=== PATIENT | male | born 1945 | race Caucasian/White ===

== ENCOUNTER → 2024-03-18 08:03 | Outpatient (REF) | payer MEDICARE, OTHER, SELFPAY ==
[2024-03-18 09:13] LABS: % Basophils 1.1 % (0-2); % Eosinophils 3.4 % (0-6); % Immature Granulocytes 0.4 % (0-0.5); % Lymphocytes 19.4 % (20.5-51.1); % Monocytes 10.4 % (1.7-9.3); % Neutrophils 65.3 % (42.2-75.2); Absolute Basophils 0.1 10^3/uL (0-0.2); Absolute Eosinophils 0.2 10^3/uL (0-0.7); Absolute Monocytes 0.6 10^3/uL (0.1-0.6); Absolute Neutrophils 3.5 10^3/uL (1.4-6.5); Hematocrit 42.4 % (39.0-52.0); Mean Corpuscular Hgb 29.5 pg (27.0-31.0); Mean Corpuscular Volume 89.5 fL (80.0-94.0); Mean Platelet Volume 9.6 fL (7.4-10.4); Nucleated Red Blood Cells % 0 % (-); Platelet Count 166 10^3/uL (130-400); Red Blood Cell Count 4.74 10^6/uL (4.70-6.10); Red Cell Dist. Width 13.2 % (11.5-14.5); White Blood Cell Count 5.3 10^3/uL (4.8-10.8)
[2024-03-18 09:19] LABS: ALT (SGPT) 23 U/L (0-50); AST (SGOT) 32 U/L (17-59); Alkaline Phosphatase 81 U/L (38-126); Blood Urea Nitrogen 32 mg/dl (9-20); Calcium 9.2 mg/dl (8.4-10.2); Carbon Dioxide 26 mmol/L (22-30); Chloride 106 mmol/L (98-107); Glucose 89 mg/dl (70-99); HDL Cholesterol 71 mg/dl; LDL Cholesterol, Calculated 129 mg/dl; Potassium 4.4 mmol/L (3.5-5.1); Sodium 137 mmol/L (135-145); Total Bilirubin 0.6 mg/dl (0.2-1.3); Total Cholesterol 220 mg/dl (50-199); Total Protein 6.5 g/dl (6.3-8.2); Triglyceride 103 mg/dl (10-149); Very Low Density Lipoprotein 20 mg/dl (0-30); eGFR 51.77
[2024-03-18 14:52] LABS: PSA, Total - Diagnostic 0.11 ng/ml (0.0-4.0); TSH Reflex To Free T4 0.79 uIU/ml (0.47-4.68)
== END ==
LOC: REG 08:03
PROVIDERS: ATTENDING PHYSICIAN Internal Medicine Cardiovascular Disease; FAMILY PHYSICIAN Family Medicine; REFERRING PHYSICIAN Specialist
DX: I34.0 Nonrheumatic mitral (valve) insufficiency (principal); I10 Essential (primary) hypertension; E78.5 Hyperlipidemia, unspecified; D50.9 Iron deficiency anemia, unspecified; I36.1 Nonrheumatic tricuspid (valve) insufficiency; C61 Malignant neoplasm of prostate
CPT/HCPCS: 36415; 80053; 80061; 84153; 84443; 85025

== ENCOUNTER → 2024-07-22 07:26 | Outpatient (REF) | payer MEDICARE, OTHER, SELFPAY ==
[2024-07-22 08:18] LABS: % Basophils 0.9 % (0-2); % Eosinophils 1.8 % (0-6); % Immature Granulocytes 0.4 % (0-0.5); % Lymphocytes 16.7 % (20.5-51.1); % Monocytes 10.3 % (1.7-9.3); % Neutrophils 69.9 % (42.2-75.2); Absolute Basophils 0.1 10^3/uL (0-0.2); Absolute Eosinophils 0.1 10^3/uL (0-0.7); Absolute Lymphocytes 0.9 10^3/uL (1.2-3.4); Absolute Monocytes 0.6 10^3/uL (0.1-0.6); Absolute Neutrophils 3.9 10^3/uL (1.4-6.5); Hematocrit 43.2 % (39.0-52.0); Hemoglobin 14.5 g/dL (13.0-18.0); Mean Corp Hgb Conc. 33.6 g/dL (33.0-37.0); Mean Corpuscular Hgb 30.2 pg (27.0-31.0); Mean Platelet Volume 9.6 fL (7.4-10.4); Nucleated Red Blood Cells % 0 % (-); Platelet Count 163 10^3/uL (130-400); Red Cell Dist. Width 13.3 % (11.5-14.5); White Blood Cell Count 5.6 10^3/uL (4.8-10.8)
[2024-07-22 08:50] LABS: ALT (SGPT) 18 U/L (0-50); AST (SGOT) 26 U/L (17-59); Albumin 4.2 g/dl (3.5-5.0); Alkaline Phosphatase 73 U/L (38-126); Blood Urea Nitrogen 32 mg/dl (9-20); Calcium 9.9 mg/dl (8.4-10.2); Carbon Dioxide 27 mmol/L (22-30); Chloride 103 mmol/L (98-107); Glucose 90 mg/dl (70-99); HDL Cholesterol 67 mg/dl; LDL Cholesterol, Calculated 158 mg/dl; Potassium 4.4 mmol/L (3.5-5.1); Sodium 143 mmol/L (135-145); Total Bilirubin 0.6 mg/dl (0.2-1.3); Total Cholesterol 253 mg/dl (50-199); Total Protein 6.6 g/dl (6.3-8.2); Triglyceride 141 mg/dl (10-149); Very Low Density Lipoprotein 28 mg/dl (0-30); eGFR 51.77
[2024-07-22 09:12] LABS: TSH Reflex To Free T4 0.78 uIU/ml (0.47-4.68)
== END ==
LOC: REG 07:26
PROVIDERS: ATTENDING PHYSICIAN Internal Medicine Cardiovascular Disease; FAMILY PHYSICIAN Family Medicine
DX: I34.0 Nonrheumatic mitral (valve) insufficiency (principal); I10 Essential (primary) hypertension; E78.5 Hyperlipidemia, unspecified; D50.9 Iron deficiency anemia, unspecified; I36.1 Nonrheumatic tricuspid (valve) insufficiency; C61 Malignant neoplasm of prostate
CPT/HCPCS: 36415; 80053; 80061; 84153; 84443; 85025

== ENCOUNTER → 2024-08-27 09:55 | Outpatient (REF) | payer MEDICARE, OTHER, SELFPAY | LOC: RCS 09:55 | PROVIDERS: ATTENDING PHYSICIAN Internal Medicine Cardiovascular Disease; FAMILY PHYSICIAN Family Medicine | DX: I10 Essential (primary) hypertension (principal); I34.1 Nonrheumatic mitral (valve) prolapse | CPT/HCPCS: 93306 ==

== ENCOUNTER → 2024-09-23 07:32 | Outpatient (REF) | payer MEDICARE, OTHER, SELFPAY ==
[2024-09-23 08:15] LABS: % Basophils 0.8 % (0-2); % Eosinophils 1.6 % (0-6); % Immature Granulocytes 0.4 % (0-0.5); % Lymphocytes 20.1 % (20.5-51.1); % Monocytes 10.7 % (1.7-9.3); % Neutrophils 66.4 % (42.2-75.2); Absolute Eosinophils 0.1 10^3/uL (0-0.7); Absolute Monocytes 0.5 10^3/uL (0.1-0.6); Absolute Neutrophils 3.4 10^3/uL (1.4-6.5); Hemoglobin 14.3 g/dL (13.0-18.0); Mean Corpuscular Hgb 30.3 pg (27.0-31.0); Mean Platelet Volume 9.7 fL (7.4-10.4); Nucleated Red Blood Cells % 0 % (-); Platelet Count 168 10^3/uL (130-400); Red Blood Cell Count 4.72 10^6/uL (4.70-6.10); Red Cell Dist. Width 13.3 % (11.5-14.5); White Blood Cell Count 5.1 10^3/uL (4.8-10.8)
[2024-09-23 08:55] LABS: ALT (SGPT) 19 U/L (0-50); AST (SGOT) 25 U/L (17-59); Alkaline Phosphatase 64 U/L (38-126); Blood Urea Nitrogen 29 mg/dl (9-20); Calcium 9.3 mg/dl (8.4-10.2); Carbon Dioxide 25 mmol/L (22-30); Chloride 105 mmol/L (98-107); Glucose 91 mg/dl (70-99); HDL Cholesterol 68 mg/dl; LDL Cholesterol, Calculated 139 mg/dl; Potassium 4.4 mmol/L (3.5-5.1); Sodium 142 mmol/L (135-145); Total Bilirubin 0.6 mg/dl (0.2-1.3); Total Cholesterol 232 mg/dl (50-199); Total Protein 6.4 g/dl (6.3-8.2); Triglyceride 127 mg/dl (10-149); Very Low Density Lipoprotein 25 mg/dl (0-30); eGFR 56.23
[2024-09-23 09:14] LABS: PSA, Total - Screen 0.11 ng/ml (0.0-4.0)
== END ==
LOC: REG 07:32
PROVIDERS: ATTENDING PHYSICIAN Family Medicine
DX: I10 Essential (primary) hypertension (principal); I34.1 Nonrheumatic mitral (valve) prolapse; E78.5 Hyperlipidemia, unspecified; D50.9 Iron deficiency anemia, unspecified; C61 Malignant neoplasm of prostate; N18.31 Chronic kidney disease, stage 3a; Z12.5 Encounter for screening for malignant neoplasm of prostate
CPT/HCPCS: 36415; 80053; 80061; 85025; G0103

== ENCOUNTER → 2024-11-01 14:06 | Outpatient (REF) | payer MEDICARE, OTHER, SELFPAY | LOC: RAD 14:06 | PROVIDERS: ATTENDING PHYSICIAN Physician Assistant | DX: H93.A3 Pulsatile tinnitus, bilateral (principal); I34.0 Nonrheumatic mitral (valve) insufficiency | CPT/HCPCS: 93880 ==

== ENCOUNTER → 2024-11-30 08:10 | Outpatient (REF) | payer MEDICARE, OTHER, SELFPAY | LOC: MRI 3T 08:10 | PROVIDERS: ATTENDING PHYSICIAN Physician Assistant; FAMILY PHYSICIAN Family Medicine | DX: H93.A3 Pulsatile tinnitus, bilateral (principal) | CPT/HCPCS: 70553; A9575 ==

== ENCOUNTER 2025-01-01 11:55 | Emergency (ER) | payer MEDICARE, OTHER, SELFPAY ==
[2025-01-01 12:03] VITALS: BP 152/87
--- NOTE | 2025-01-01 13:18 | ED.GENMED ---
History of Present Illness
General
Chief Complaint: Abdominal Symptoms
Time Seen by Provider: 01/01/25 13:07
History of Present Illness
History of Present Illness:
79-year-old male presents the emergency department for evaluation after a choking event. This is apparently the third such a choking event in the past 2 years. Daughter performed the Heimlich maneuver. He had mild coughing after the event but has
had none since. He denies any chest pain or dyspnea at this time
Past History
Past History
ED Past Medical History: HTN and Other (Hyperlipidemia)
ED Past Surgical History: Other (Noncontributory)
Social History
Tobacco: Non-smoker
Alcohol: Occasional
Drug: None
Personal:
Living: with family
Review of Systems
Review of Systems
Allergies reviewed?: Yes
All Other Systems: ROS reviewed and negative except as documented in HPI and ROS
Phy Exam
Physical Exam
Physical Exam:
GEN: Well appearing, NAD, WDWN
HEENT: Oral mucosa moist, no scleral icterus
Cardiac: Regular rate
Lung: No respiratory distress, no tachypnea, lungs clear to auscultation bilaterally
MSK: No gross deformity or injuries
Skin: Good color, no pallor or jaundice, no rashes
Neuro: AO x3, moves all extremities freely
Psych: Calm, cooperative
Course
Vital Signs
Initial and Last Documented VS:
Initial Vital Signs
Temp Pulse Resp BP Pulse Ox
98.1 F 64 16 152/87 100
01/01/25 12:03 01/01/25 12:03 01/01/25 12:01/01/25 12:03 01/01/25 12:03
Last Documented Vital Signs
Temp Pulse Resp BP Pulse Ox
98.1 F 64 16 152/87 100
01/01/25 12:03 01/01/25 12:03 01/01/25 12:03 01/01/25 12:03 01/01/25 12:03
MDM/Problems Addressed
MDM/Problems Addressed:
Lungs clear at this time, no evidence of coughing to suggest ongoing aspiration event. No indication for treatment of aspiration pneumonia, however I did provide the patient with antibiotics and advised he and his family to begin these if you
develop fever or coughing in the next 48 hours. No indication for chest x-ray from my standpoint. Outpatient orders written for speech therapy evaluation
*Critical Care Note
Total Time (30-74mins, 75-104mins- exclusive of procedures): Not Applicable
ED Attending Note
-
Portions of this chart may have been created with voice recognition software.� Occasional wrong word or��sound alike� substitutions may have occurred due to the inherent limitations of voice recognition software.
Discharge Plan
Departure
Patient Disposition: Home (Routine Discharge)
Date of Disposition: 01/01/25
Time of Disposition: 13:18
Patient with high blood pressure during this ER visit?: No
Discharge Problem:
Choking
Instructions: Choking
Prescriptions:
New
amoxicillin-pot clavulanate 875-125 mg tablet
1 tab PO BID Qty: 10 0RF
No Action
simvastatin 20 MG tablet
20 mg PO HS
dimethicone [Cerave Baby Moisturizing] 237 ML lotion
1 applic topical DAILYPRN PRN (Reason: eczema)
triamcinolone acetonide 1 APPLIC ointment
15 gm TP DAILYPRN PRN (Reason: eczema)
acetaminophen [Tylenol Extra Strength] 500 MG tablet
500 mg PO PRN PRN (Reason: mild pain)
calcium carbonate [Antacid (calcium carbonate)] 1 TABLET tablet,chewable
1,000 mg PO DAILYPRN PRN (Reason: indigestion)
melatonin 5 MG tablet
5 - 10 mg PO PRN PRN (Reason: sleep)
aspirin 81 MG tablet,delayed release (DR/EC)
81 mg PO DAILY
ibuprofen 200 MG capsule
200 mg PO PRN PRN (Reason: Daily)
valacyclovir 500 MG tablet
500 mg PO PRN PRN (Reason: As Needed)
tamsulosin 0.4 MG capsule
0.4 mg PO QPM
electrolytes-dextrose [Hydralyte] 1,000 ML solution
1,000 ml PO PRN PRN (Reason: As Needed)
naproxen sodium 220 MG capsule
220 mg PO PRN PRN (Reason: Pain)
ferrous gluconate 236 MG tablet
236 mg PO DAILY
Ca [id number]-[id number]-Mkaf-gozqh-lim bor [Prosteon] 1 EACH tablet
1 ea PO BID
Interventions
Interventions:
*Risk Screen - Suicide Last Done: 01/01/25 12:03
*General Assessment Last Done: 01/01/25 13:39
*Neglect/Abuse Screening Last Done: 01/01/25 12:03
ED- Fall Risk Assessment Last Done: 01/01/25 13:41
*ED COVID-19 Vaccine History Last Done: 01/01/25 13:39
*Nursing Disposition Last Done: 01/01/25 14:14
DT-Boyjzd-Cwsxtwgvvx Assessment Last Done: 01/01/25 13:43
Discharge Date and Time
Discharge Date/Time: 01/01/25 14:14
Print Language: ERITREAN
[2025-01-01 13:40] VITALS: BMI 20.5
== END 2025-01-01 14:14 | disposition home or self-care (01) ==
LOC: EMR 11:55
PROVIDERS: EMERGENCY PHYSICIAN Student in an Organized Health Care Education/Training Program; FAMILY PHYSICIAN Family Medicine
DX: T17.920A Food in respiratory tract, part unspecified causing asphyxiation, initial encounter (principal); W44.F3XA Food entering into or through a natural orifice, initial encounter
CPT/HCPCS: 99283

== ENCOUNTER → 2025-03-24 15:52 | Outpatient (REF) | payer MEDICARE, OTHER, SELFPAY | LOC: RAD 15:52 | PROVIDERS: ATTENDING PHYSICIAN Family Medicine | DX: M54.50 Low back pain, unspecified (principal) | CPT/HCPCS: 72110 ==

== ENCOUNTER 2025-04-03 22:08 | Emergency (ER) | payer MEDICARE, OTHER, SELFPAY ==
[2025-04-03 22:31] VITALS: BP 158/97
--- NOTE | 2025-04-04 01:40 | EDRN ---
increased. Pt states that he was on a dose pack and it did nothing for him. Pt states that when was bending to get into bed the pain flew into his mid back and it was excruciating.
[2025-04-04 03:00] VITALS: BP 147/80
--- NOTE | 2025-04-04 03:22 | ED.GENMED ---
History of Present Illness
General
Chief Complaint: Back Pain
Source: patient
Exam Limitations: none
Time Seen by Provider: 04/04/25 03:20
History of Present Illness
History of Present Illness:
79-year-old male with a past medical history of hypertension, hyperlipidemia, chronic renal disease, he presents to emergency apartment with concerns of low back pain. Patient reports that he�s had this ongoing for the past month. Patient reports
that he had x-rays of this a week ago, which did not show anything acute. He was started on steroids with minimal improvement of his symptoms. Patient reports that when he was going to sleep this evening, the pain was keeping him up. He denies
urinary or fecal incontinence, he needs any general paresthesias. He needs any fevers or chills. He denies any abdominal pain. He states that the pain is worse with movement or twisting or bending. Patient reports that the pain is lowest when he is
remaining still. patient has a follow up with his primary care provider for the symptoms in a few days. Patient also states that he had intermittent chest discomfort with this with certain movements that has been going on and off for the past few
weeks. He reports that he feels pain around his ribs and feels like the back pain will radiate to the front. He and I shortness of breath. Aside from the steroids, he�s not taking anything else for symptoms. He has pain lower extremities. He has
difficulty ambulating.
Past History
Past History
ED Past Medical History: HTN and Other (Hyperlipidemia)
ED Past Surgical History: Other (Noncontributory)
Social History
Tobacco: Non-smoker
Alcohol: Occasional
Drug: None
Personal:
Living: with family
Review of Systems
Review of Systems
All Other Systems: ROS reviewed and negative except as documented in HPI and ROS
Phy Exam
Physical Exam
Physical Exam:
General: Patient is well appearing and in no acute distress; non-toxic
Skin: Warm and dry, no rashes or lesions
Head: Normocephalic, atraumatic
Eyes: Sclera non-icteric. EOMs intact.
Cardiac: Regular rate and rhythm, no murmurs, no tenderness to palpation in the external chest wall
Peripheral Vascular: No LE swelling or edema
Pulm: Normal respiratory effort, no wheezes, rales, or rhonchi
Abdomen: No abdominal tenderness to palpation
Musculoskeletal: No midline spinal tenderness to palpation. Some paralumbar tenderness to palpation noted.
Neuro: CN II-XII intact, no focal neurologic deficits. Normal gait.
Psychiatric: Appropriate mood and affect.
Course
Orders/Labs/Results
Orders:
Orders
04/04/25 03:42
Lidocaine [Lidocaine 4% Patch] 1 patch TOPICAL DAILY ONE
Apply Lidocaine patch(s) to:: lower lumbar
Vital Signs
Initial and Last Documented VS:
Initial Vital Signs
Temp Pulse Resp BP Pulse Ox
98.0 F 82 16 158/97 96
04/03/25 22:31 04/03/25 22:31 04/03/25 22:31 04/03/25 22:31 04/03/25 22:31
Last Documented Vital Signs
Temp Pulse Resp BP Pulse Ox
97.8 F 77 16 147/80 97
04/04/25 03:00 04/04/25 03:00 04/04/25 03:00 04/04/25 03:00 04/04/25 03:00
MDM/Problems Addressed
Differential Diagnosis Includes:
ddx include lumbar sprain, compression fracture, ACS, costochondritis
MDM/Problems Addressed:
This is a 79-year-old male presents emergency apartment with concerns of back pain. History is above. This has been going on for the past month. He also admits that he�s had intermittent chest discomfort. On physical exam he�s well appearing in no
distress, he is ambulating without difficulty. He has no midline spinal tenderness. He has no neurologic deficits. Initial plan was to obtain blood work including troponin, ecg, and also repeat x-rays. Patient states that �this is not a problem with
the heart� and is refusing ecg and blood work, patient is very frustrated as he has been waiting too long and is requesting to go home. He attempted to elope prior to my evaluation. Patient reports that the chest pain only occurs occasionally with
certain movements and is currently chest pain free. I did explain to patient that in his age and risk, it is important to assess for coronary disease. Patient still requesting to go home as he has to make an urology appointment in a few hours.
Discussed strict returning precautions. Patient states that if it comes back or gets worse he will return. In light of patients back pain, do not suspect neurologic emergency or aortic emergency, suspect lumbar sprain especially considering it�s
chronicity. Did offer various pain management regimens but patient did opt for lidocaine patch. Patient stable for discharge
Chronic conditions affecting care:
hlp, htn
*Pulse Oximetry
Patient hypoxic: no
*Critical Care Note
Total Time (30-74mins, 75-104mins- exclusive of procedures): Not Applicable
Data Reviewed
Review of Other/Old Records Reveals: Records
ED Attending Note
-
Portions of this chart may have been created with voice recognition software.� Occasional wrong word or��sound alike� substitutions may have occurred due to the inherent limitations of voice recognition software.
Discharge Plan
Departure
Patient Disposition: Home (Routine Discharge)
Date of Disposition: 04/04/25
Time of Disposition: 04:03
Patient with high blood pressure during this ER visit?: Yes
Condition: Good
Discharge Problem:
Acute lumbar myofascial strain
Instructions: Low Back Pain (DC), BLOOD PRESSURE
Prescriptions:
New
lidocaine 5 % adhesive patch,medicated
1 patch topical DAILY Qty: 30 0RF
No Action
simvastatin 20 MG tablet
20 mg PO HS
dimethicone [Cerave Baby Moisturizing] 237 ML lotion
1 applic topical DAILYPRN PRN (Reason: eczema)
triamcinolone acetonide 1 APPLIC ointment
15 gm TP DAILYPRN PRN (Reason: eczema)
acetaminophen [Tylenol Extra Strength] 500 MG tablet
500 mg PO PRN PRN (Reason: mild pain)
calcium carbonate [Antacid (calcium carbonate)] 1 TABLET tablet,chewable
1,000 mg PO DAILYPRN PRN (Reason: indigestion)
melatonin 5 MG tablet
5 - 10 mg PO PRN PRN (Reason: sleep)
aspirin 81 MG tablet,delayed release (DR/EC)
81 mg PO DAILY
ibuprofen 200 MG capsule
200 mg PO PRN PRN (Reason: Daily)
valacyclovir 500 MG tablet
500 mg PO PRN PRN (Reason: As Needed)
tamsulosin 0.4 MG capsule
0.4 mg PO QPM
electrolytes-dextrose [Hydralyte] 1,000 ML solution
1,000 ml PO PRN PRN (Reason: As Needed)
naproxen sodium 220 MG capsule
220 mg PO PRN PRN (Reason: Pain)
ferrous gluconate 236 MG tablet
236 mg PO DAILY
Ca Usr-[id number]-Eryh-hhcgf-daj bor [Prosteon] 1 EACH tablet
1 ea PO BID
amoxicillin-pot clavulanate 875-125 mg tablet
1 tab PO BID Qty: 10 0RF
Referrals:
Nancy Mathis MD [Family Provider] -
Activity Restrictions/Additional Instructions:
Please follow-up with your urologist and primary care provider as discussed.
Lidocaine patches have been sent to your pharmacy. You can apply 1 patch once daily to affected area. Please remove after 12 hours.
PLEASE RETURN EMERGENCY DEPARTMENT SHOULD YOU DEVELOP NUMBNESS OR TINGLING IN THE GENITAL REGION, URINARY FECAL INCONTINENCE, URINARY RETENTION, DIFFICULTY AMBULATING, OR BILATERAL LOWER EXTREMITY WEAKNESS. LOSS OF SENSATION LOWER EXTREMITIES.
INABILITY AMBULATE, OR ANY OTHER SIGNS OR SYMPTOMS WORRISOME TO YOU.
Interventions
Interventions:
*Risk Screen - Suicide Last Done: 04/03/25 22:31
*General Assessment Last Done: 04/03/25 22:31
*Neglect/Abuse Screening Last Done: 04/03/25 22:31
*ED- Fall Risk Assessment Last Done: 04/03/25 22:31
*ED COVID-19 Vaccine History Last Done: 04/03/25 22:31
*Nursing Disposition Last Done: 04/04/25 04:00
ED-Musculoskeletal Assessment Last Done: 04/04/25 01:37
Discharge Date and Time
Discharge Date/Time: 04/04/25 04:00
Print Language: ARABIC
[2025-04-04] MEDS: LIDOCAINE 4% PATCH 1 PATCH TOPICAL (04:06)
== END 2025-04-04 04:00 | disposition home or self-care (01) ==
LOC: EMR 22:08
PROVIDERS: EMERGENCY PHYSICIAN Student in an Organized Health Care Education/Training Program; FAMILY PHYSICIAN Family Medicine
DX: S39.012A Strain of muscle, fascia and tendon of lower back, initial encounter (principal); X58.XXXA Exposure to other specified factors, initial encounter; I12.9 Hypertensive chronic kidney disease with stage 1 through stage 4 chronic kidney disease, or unspecified chronic kidney disease; N18.9 Chronic kidney disease, unspecified; E78.49 Other hyperlipidemia
CPT/HCPCS: 99283

== ENCOUNTER → 2025-04-07 15:15 | Outpatient (REF) | payer MEDICARE, OTHER, SELFPAY | LOC: MRI 3T 15:15 | PROVIDERS: ATTENDING PHYSICIAN Family Medicine | DX: M54.50 Low back pain, unspecified (principal); R15.9 Full incontinence of feces | CPT/HCPCS: 72148 ==

== ENCOUNTER → 2025-11-04 10:48 | Outpatient (REF) | payer OTHER, MEDICARE, SELFPAY ==
[2025-11-04 11:18] LABS: Hematocrit 26.4 % (39.0-52.0); Hemoglobin 8.3 g/dL (13.0-18.0); Mean Corp Hgb Conc. 31.4 g/dL (33.0-37.0); Mean Corpuscular Volume 88.9 fL (80.0-94.0); Nucleated Red Blood Cells % 0 % (-); Platelet Count 329 10^3/uL (130-400); Red Cell Dist. Width 13.6 % (11.5-14.5)
[2025-11-04 12:35] LABS: Blood Urea Nitrogen 26 mg/dl (9-20); Calcium 8.5 mg/dl (8.4-10.2); Carbon Dioxide 26 mmol/L (22-30); Chloride 104 mmol/L (98-107); Glucose 83 mg/dl (70-99); Potassium 4.0 mmol/L (3.5-5.1); Sodium 134 mmol/L (135-145); eGFR > 60.00
== END ==
LOC: OLABP 10:48
PROVIDERS: ATTENDING PHYSICIAN Family Medicine
DX: R31.9 Hematuria, unspecified (principal); S31.809D Unspecified open wound of unspecified buttock, subsequent encounter; S22.081D Stable burst fracture of T11-T12 vertebra, subsequent encounter for fracture with routine healing; F03.90 Unspecified dementia, unspecified severity, without behavioral disturbance, psychotic disturbance, mood disturbance, and anxiety; I10 Essential (primary) hypertension; R42 Dizziness and giddiness; F41.9 Anxiety disorder, unspecified; M54.50 Low back pain, unspecified
CPT/HCPCS: 36415; 80048; 85025

== ENCOUNTER → 2025-11-07 11:26 | Outpatient (REF) | payer OTHER, MEDICARE, SELFPAY ==
[2025-11-07 12:09] LABS: Hematocrit 25.7 % (39.0-52.0); Hemoglobin 8.5 g/dL (13.0-18.0); Mean Corp Hgb Conc. 33.1 g/dL (33.0-37.0); Mean Corpuscular Volume 87.1 fL (80.0-94.0); Nucleated Red Blood Cells % 0 % (-); Platelet Count 376 10^3/uL (130-400); Red Cell Dist. Width 13.5 % (11.5-14.5)
== END ==
LOC: OLABP 11:26
PROVIDERS: ATTENDING PHYSICIAN Family Medicine
DX: S22.081D Stable burst fracture of T11-T12 vertebra, subsequent encounter for fracture with routine healing (principal); F03.90 Unspecified dementia, unspecified severity, without behavioral disturbance, psychotic disturbance, mood disturbance, and anxiety; I10 Essential (primary) hypertension; R42 Dizziness and giddiness; F41.9 Anxiety disorder, unspecified; M54.50 Low back pain, unspecified; R31.9 Hematuria, unspecified
CPT/HCPCS: 36415; 85025

== ENCOUNTER → 2025-11-14 09:36 | Outpatient (REF) | payer OTHER, MEDICARE, SELFPAY ==
[2025-11-14 11:16] LABS: Hematocrit 25.8 % (39.0-52.0); Hemoglobin 8.4 g/dL (13.0-18.0); Mean Corp Hgb Conc. 32.6 g/dL (33.0-37.0); Mean Corpuscular Volume 86.0 fL (80.0-94.0); Nucleated Red Blood Cells % 0 % (-); Platelet Count 355 10^3/uL (130-400); Red Cell Dist. Width 13.3 % (11.5-14.5)
[2025-11-14 11:22] LABS: Blood Urea Nitrogen 26 mg/dl (9-20); Calcium 8.7 mg/dl (8.4-10.2); Carbon Dioxide 27 mmol/L (22-30); Chloride 105 mmol/L (98-107); Glucose 82 mg/dl (70-99); Potassium 4.3 mmol/L (3.5-5.1); Sodium 136 mmol/L (135-145); eGFR > 60.00
== END ==
LOC: OLABP 09:36
PROVIDERS: ATTENDING PHYSICIAN Family Medicine
DX: S22.081D Stable burst fracture of T11-T12 vertebra, subsequent encounter for fracture with routine healing (principal); F03.90 Unspecified dementia, unspecified severity, without behavioral disturbance, psychotic disturbance, mood disturbance, and anxiety; I10 Essential (primary) hypertension; R42 Dizziness and giddiness; F41.9 Anxiety disorder, unspecified; M54.50 Low back pain, unspecified; S31.809D Unspecified open wound of unspecified buttock, subsequent encounter; R31.9 Hematuria, unspecified
CPT/HCPCS: 36415; 80048; 85025